=== PATIENT | female | born 1945 | race Caucasian/White ===

== ENCOUNTER → 2017-04-13 | Day surgery (SDC) | payer MEDICARE ==
[2017-04-10 12:56] VITALS: BMI 29.8
[~2017-04-13] MED LIST: FLU VACC TS2017-18 (>65YR) 0.5 ML SYRINGE IM ONE; Lidocaine 1% PF 5 ML VIAL ONE
[2017-04-13 13:31] VITALS: BP 124/79; TEMP 98.6
--- NOTE | 2017-04-13 16:18 | ULT ---
EXAM: THYROID ULTRASOUND FINE NEEDLE ASPIRATION: HISTORY: Right thyroid lobe nodule. COMPARISON: Outside thyroid ultrasound 03/25/17. FINDINGS: Technically successful fine needle aspiration of a solid nodule in the right thyroid lobe. A total o f four 25-gauge fine needle aspirations were obtained. There are no immediate post-procedure complic ations. TECHNIQUE: Consent was obtained to perform an ultrasound-guided fine needle aspiration of a solid mass in the ri ght thyroid lobe. The mass was redemonstrated and measures 0.9 x 0.6 x 0.9 cm. No significant river e when compared to the outside ultrasound. The right neck was prepped and draped in sterile fashion. 1% Lidocaine, buffered with sodium bicarbonate, was used for local anesthesia. Under ultrasound gu idance. A 25-gauge fine needle aspiration was performed. F our passes were performed. The patient to lerated the procedure well. No immediate or post-procedure complication. IMPRESSION: Technically successful fine needle aspiration of a solid nodule in the right thyroid lobe. Final pat hologic diagnosis is pending. POS: [facility]
== END ==
LOC: ULT 11:45
PROVIDERS: ATTEND Specialist
PROC: 0G9H3ZX Drainage of Right Thyroid Gland Lobe, Percutaneous Approach, Diagnostic (ICD-10-PCS; principal; 2017-04-13)
DX: E04.1 Nontoxic single thyroid nodule (principal); E78.00 Pure hypercholesterolemia, unspecified; M06.9 Rheumatoid arthritis, unspecified; Z79.899 Other long term (current) drug therapy
CPT/HCPCS: 10022; 76942; 88173; J2001

== ENCOUNTER 2018-05-27 07:42 | Outpatient (CLI) | payer MEDICARE ==
[2018-05-27 09:55] LABS: #Eosinphils 0.1 thou/uL (0.0-0.7); #Lymphocytes 1.9 thou/uL (1.20-3.40); #Monocytes 0.4 thou/uL (0.11-0.59); #Neutrophils 3.5 thou/uL (1.40-6.50); %Basophils 0.6 % (0.0-1.0); %Eosinophils 2.5 % (0.0-10.0); %Monocytes 6.6 % (0.0-10.0); %Neutrophils 58.2 % (42.0-75.0); Bilirubin Negative (Negative); Blood, Urine Negative (Negative); Clarity CLEAR (Clear); Glucose, Urine (Dipstick) Negative (Negative); Hemoglobin 14.1 g/dL (12.0-16.0); Leukocyte Negative (Negative); Mean Corpuscular HGB CONC 32.6 g/dL (32.0-36.0); Mean Corpuscular Hemoglobin 29.8 pg (27.0-31.0); Mean Corpuscular Volume 91.4 fL (78.0-98.0); Nitrite Negative (Negative); Platelet Count 192 thou/uL (130-400); Protein, Urine (Dipstick) Negative (Neg-Trace); RBC Distribution Width 11.9 % (11.5-14.5); Red Blood Cell (RBC) Count 4.75 mill/uL (4.20-5.40); Specific Gravity, Urine 1.018 (1.002-1.036); Urobilinogen 0.2 mg/dL (0.2-1.0); White Blood Cell (WBC) Count 5.9 thou/uL (4.8-10.8); pH, Urine 5.5 (5.0-9.0)
[2018-05-27 09:59] LABS: Bacteria/HPF None Seen HPF (None Seen); Hyaline Casts/LPF 0-3 HYALINE CAST LPF (0-3 Hyaline); PTT 26.1 SEC (22.9-36.1); Pathc Cast-AUWi Flag 0.43 (0-2.49); Prothrombin Time 12.9 SEC (12.0-14.7); RBC/HPF 0-3 HPF (0-3); Squamous Epithelial 0-3 HPF (0-3); WBC/HPF 0-3 HPF (0-3)
[2018-05-27 10:13] LABS: Anion Gap 17 mmol/L (10-20); BUN (Urea Nitrogen) 13 mg/dL (9.8-20.1); Calc. Creatinine Clearance 0 mL/min (70-130); Calcium 9.4 mg/dL (7.8-10.44); Carbon Dioxide 19 mmol/L (23-31); Chloride 109 mmol/L (98-107); Estimated GFR-MDRD 80; Glucose 109 mg/dL (83-110); Potassium 3.7 mmol/L (3.5-5.1); Sodium 141 mmol/L (136-145)
--- NOTE | 2018-05-27 13:19 | EKG ---
Test Reason : Blood Pressure : / mmHG Vent. Rate : 061 BPM Atrial Rate : 061 BPM P-R Int : 152 ms QRS Dur : 092 ms QT Int : 400 ms P-R-T Axes : 052 -11 026 degrees QTc Int : 402 ms Normal sinus rhythm Normal ECG When compared with ECG of 30-MAR-2014 09:35, Nonspecific T wave abnormality has replaced inverted T waves in Inferior leads Confirmed by KARIN FAGAN, SJoselito ([id number]) on 05/27/2018 1:18:39 PM Referred By: MIKE Confirmed By:DR. Micah FRAZIER MD
== END 2018-05-27 07:43 | disposition home or self-care (01) ==
LOC: LABBT 07:42
PROVIDERS: ATTEND Orthopaedic Surgery
DX: Z01.818 Encounter for other preprocedural examination (principal); M17.0 Bilateral primary osteoarthritis of knee
CPT/HCPCS: 80048; 81001; 85025; 85610; 85730; 87081; 87086; 93005; 93010

== ENCOUNTER 2018-05-27 08:30 | Inpatient (IN) | payer MEDICARE ==
--- NOTE | 2018-06-03 08:43 | HP ---
HISTORY OF PRESENT ILLNESS: The patient is a 73-year-old female with a long history of progressive problems with both knees, right greater than left, without injury. She has had progressive problems with pain despite rest, restriction of activities, cortisone injection, Synvisc injections, and anti-inflammatory medications. Her right knee pain has progressed to the point that now limits day-to-day activities including walking, getting dressed, and sleeping. PAST HISTORY: The patient has a history of possible rheumatoid arthritis, high blood pressure, high cholesterol, and nasal allergies. CURRENT MEDICATIONS: Include losartan, metoprolol, hydrochlorothiazide, glucosamine, vitamins, potassium, pravastatin, coenzyme Q. ALLERGIES: SHE IS ALLERGIC TO AMLODIPINE, ATORVASTATIN, AND BENAZEPRIL/HYDROCHLOROTHIAZIDE. FAMILY HISTORY: Otherwise, unremarkable. SOCIAL HISTORY: Otherwise, unremarkable. REVIEW OF SYSTEMS: Otherwise, unremarkable. PHYSICAL EXAMINATION: GENERAL: Healthy female. HEENT: Unremarkable. NECK: Supple. CHEST: Clear. HEART: Regular rate and rhythm. ABDOMEN: Soft, nontender. PELVIC: Deferred. RECTAL: Deferred. BREASTS: Deferred. EXTREMITIES: Pertinent findings of the right knee, there is no effusion, there is mild varus, there is tenderness over the medial joint line, range of motion is 0 to 120 degrees, there is mild crepitus, there is no instability. There is a right antalgic gait. Neurovascular exam is intact. Pulses are 1+. DIAGNOSTIC STUDIES: X-rays of the right knee reveal degenerative changes medially with minimal joint space remaining. There are mild changes in the left side. IMPRESSION: 1. Degenerative arthritis of right knee. 2. History of hypertension. PLAN: Right total knee replacement. The nature of the surgery, length of recovery, and potential complications such as infection, loss of motion, incomplete relief, delayed wound healing, neurovascular injury, thromboembolic phenomenon, possible transfusion, need for revision have been discussed in detail. Job ID: [id number]
[2018-06-07] MEDS ORDERED: CEFAZOLIN 2 GM/50 ML BAG ONE (06:20)
[2018-06-07] MEDS ORDERED: Tranexamic Acid 1,000 MG/10 ML VIAL ONE ×2 (06:20→08:46)
[2018-06-07] MEDS ORDERED: Sodium Chloride 0.9% 100 ML ONE (06:20)
[2018-06-07] MEDS ORDERED: Midazolam HCl 2 mg/2 ml Vial ONE (06:29)
[2018-06-07] MEDS ORDERED: Fentanyl 100 MCG/2 ML VIAL ONE ×4 (06:29→09:52)
[2018-06-07] MEDS ORDERED: Bupivacaine HCl 0.5%/Epinephrine 1:200,000/PF 30 ml Vial ONE (06:45)
[2018-06-07] MEDS ORDERED: Ondansetron PF 4 MG/2 ML Vial IVP PRN ×2 (07:28→10:22)
[2018-06-07] MEDS ORDERED: traMADol HCl 50 MG TAB PO PRN ×3 (07:28→10:22)
[2018-06-07] MEDS ORDERED: Zolpidem Tartrate 5 MG TAB PO PRN ×2 (07:28→10:22)
[2018-06-07] MEDS ORDERED: Promethazine HCl 25 MG/ML VIAL IM PRN ×2 (07:28→07:44)
[2018-06-07] MEDS ORDERED: Fentanyl 100 MCG/2 ML VIAL SLOW IVP PRN (07:28)
[2018-06-07] MEDS ORDERED: Promethazine HCl 25 MG/ML VIAL SLOW IVP PRN ×2 (07:44→10:22)
[2018-06-07] MEDS ORDERED: Ondansetron HCl/PF 4 MG/2 ML Vial IVP PRN (07:44)
[2018-06-07] MEDS ORDERED: Tranexamic Acid 1,000 MG in Sodium Chloride 0.9% 100 ML IVPB SCH ×2 (09:00→10:22)
--- NOTE | 2018-06-07 10:07 | OP ---
DATE OF PROCEDURE: 06/07/2018 BLOW PIT OPERATOR: Radha Bell PA-C ANESTHESIA: General plus adductor canal and sciatic nerve blocks. PREOPERATIVE DIAGNOSIS: Degenerative arthritis, right knee. POSTOPERATIVE DIAGNOSIS: Degenerative arthritis, right knee. PROCEDURES: Right total knee replacement with computer-assisted navigation with cemented [place] triathlon components (#4 femoral component, #3 primary tibial base plate with 9 mm CS plastic insert, and all plastic A29 patellar component). DESCRIPTION OF PROCEDURE: After report of satisfactory anesthesia was induced in supine position, sequential compression device was placed on the nonoperative leg throughout the procedure. The right leg was then prepped and draped in routine sterile fashion. The right leg was elevated and exsanguinated with an Esmarch bandage and the tourniquet inflated to 250 mmHg. A gently curved medial parapatellar incision was made, carried down through the subcutaneous tissues and bleeding points controlled with the Bovie cautery. The medial parapatellar arthrotomy was performed of the patella, this was carried laterally and portion of the fat pad were excised for exposure. There was marked degenerative arthritis of the knee especially medially and then patellofemoral bone with large areas of exposed bone. The changes were slightly more pronounced than present on the routine x-rays. Meniscal remnants and osteophytes were removed. Using the NeuralStem navigation system and the appropriate guides, the distal femoral and proximal tibial articular surfaces were excised with an oscillating saw to accept the trial components. It was felt that #4 femoral component and #3 tibial base plate with 9 mm CS plastic insert gave appropriate size fit and stability. The patellar articular surface was excised to accept an all plastic A29 patellar component. There was good range of motion and good patellar tracking. The trial components were removed. The knee was copiously irrigated with pulsatile lavage and bony surfaces thoroughly cleaned and dried. The permanent components were then cemented in a single stage using one pack of cement premixed with 1 g of tobramycin powder. Excess cement was removed. There was again good fit and stability of the components. The knee was then copiously irrigated. The skin was infiltrated with 30 mL of 0.25% Marcaine with epinephrine. The medial retinaculum and quadriceps mechanism were closed with interrupted #2 Vicryl and running #2 Quill. Subcutaneous tissues were closed with a running 0-Quill suture. The skin was closed with running subcuticular 3-0 Monoderm and SurgiSeal skin adhesive. A sterile bulky compressive dressing was applied and the tourniquet deflated at 69 minutes. The foot promptly pinked up. Sequential compression device was applied to the operated leg and she was awakened taken to recovery room in stable condition. There were no apparent intraoperative complications. ESTIMATED BLOOD LOSS: Less than 100 mL. Job ID: [id number]
--- NOTE | 2018-06-07 10:07 | RAD ---
RIGHT KNEE TWO VIEWS: Indication: Post-operative evaluation. FINDINGS: There is a right knee prosthesis without hardware complication. Expected post procedural soft tissue findings are seen. IMPRESSION: No acute post-operative complication is identified at the right knee. POS: [facility]
[2018-06-07] MEDS ORDERED: Acetaminophen 325 MG TAB PO PRN (10:22)
[2018-06-07] MEDS ORDERED: diphenhydrAMINE 25 MG CAP PO PRN (10:22)
[2018-06-07] MEDS ORDERED: POTASSIUM PO SCH (10:22)
[2018-06-07] MEDS ORDERED: CEFAZOLIN/Water 2 GM/20 ML SYRINGE SLOW IVP SCH (10:22)
[2018-06-07] MEDS ORDERED: HYDROcodone/Acetaminophen 10/325 mg Tablet PO PRN ×2 (10:22)
[2018-06-07] MEDS: HYDROcodone/Acetaminophen 10/325 mg Tablet PO PRN ×2 (11:03→20:47)
[2018-06-07] MEDS: Ketorolac Tromethamine 30 MG/ML VIAL IVP SCH ×2 (11:03→18:18)
[2018-06-07] MEDS: Sodium Chloride 0.9% 1,000 ML IV SCH ×2 (11:33→20:48)
[2018-06-07] MEDS ORDERED: Eucerin (Mineral Oil/Petrolatum,White) 30 gm Jar TOP PRN (12:13)
[2018-06-07] MEDS ORDERED: Artificial Tears 18 DROP/0.9 ML EA EYE PRN (12:13)
[2018-06-07] MEDS ORDERED: Loperamide HCl 2 MG CAP PO PRN (12:13)
[2018-06-07] MEDS ORDERED: Cepastat Lozenges 1 LOZ PO PRN (12:13)
[2018-06-07] MEDS ORDERED: Calcium Carbonate 500 MG ChewTAB PO PRN (12:13)
[2018-06-07] MEDS ORDERED: Diabetic Tussin 200 MG/10 ML UDCUP PO PRN (12:13)
[2018-06-07] MEDS ORDERED: hydrALAZINE 20 MG/ML VIAL SLOW IVP PRN (12:13)
[2018-06-07] MEDS ORDERED: Sodium Chloride 0.65% Nasal 44 ML BOT EA NARE PRN (12:13)
--- NOTE | 2018-06-07 13:38 | PDOC.PN ---
- Subjective Encounter Start Date: 06/07/18 Encounter Start Time: 13:15 -: old records requested/rev Patient seen and examined. No new complaints. she is admitted for right TKR she does not have any chest pain or dyspnea - Objective Resuscitation Status - Order Detail: 06/07/18 12:12 Resuscitation Status Routine Resuscitation Status: FULL: Full Resuscitation MAR Reviewed: Yes Vital Signs & Weight: Vital Signs (12 hours) Temp Pulse Resp BP Pulse Ox 06/07/18 11:14 85 140/85 06/07/18 10:30 100 06/07/18 10:00 98.1 F 82 18 181/97 H 100 Weight Weight 175 lb Additional Labs: old labs reviewed from [facility], and unremarkable including CBC and BMP Radiology Reviewed by me: Yes (knee xray reviewed) Phys Exam - Physical Examination Constitutional: NAD HEENT: PERRLA, moist MMs, sclera anicteric Neck: no JVD, supple Respiratory: no wheezing, no rales, no rhonchi Cardiovascular: RRR, no significant murmur, no rub Gastrointestinal: soft, non-tender, no distention, positive bowel sounds Musculoskeletal: no edema, pulses present right knee with dressing, nerve block+, hale+ Neurological: non-focal, normal sensation, moves all 4 limbs Lymphatic: no nodes Psychiatric: normal affect, A&O x 3 Skin: no rash, normal turgor Dx/Plan (1) Status post total right knee replacement Code(s): Z96.651 - PRESENCE OF RIGHT ARTIFICIAL KNEE JOINT Status: Acute (2) Dyslipidemia Code(s): E78.5 - HYPERLIPIDEMIA, UNSPECIFIED Status: Chronic (3) Hypertension Code(s): I10 - ESSENTIAL (PRIMARY) HYPERTENSION Status: Chronic (4) Obesity (BMI 30.0-34.9) Code(s): E66.9 - OBESITY, UNSPECIFIED Status: Chronic (5) Osteoarthritis Code(s): M19.90 - UNSPECIFIED OSTEOARTHRITIS, UNSPECIFIED SITE Status: Chronic - Plan cont current plan of care, plan discussed w/ family, PT/OT * medication reviewed as below * symptomatic treatment * home medication reconciled * code status full code addressed * pepcid for GI prophylaxis. * continue aspirin for DVT prophylaxis per protocol * nerve block as per anesthesia * pain controlled * medically stable for now * discussed with family * will follow. Review of Systems - Review of Systems ENT: negative: Ear Pain, Ear Discharge, Nose Pain, Nose Discharge, Nose Congestion, Mouth Pain, Mouth Swelling, Throat Pain, Throat Swelling, Other Respiratory: negative: Cough, Dry, Shortness of Breath, Hemoptysis, SOB with Excertion, Pleuritic Pain, Sputum, Wheezing Cardiovascular: negative: chest pain, palpitations, orthopnea, paroxysmal nocturnal dyspnea, edema, light headedness, other Gastrointestinal: negative: Nausea, Vomiting, Abdominal Pain, Diarrhea, Constipation, Melena, Hematochezia, Other Genitourinary: negative: Dysuria, Frequency, Incontinence, Hematuria, Retention , Other Musculoskeletal: negative: Neck Pain, Shoulder Pain, Arm Pain, Back Pain, Hand Pain, Leg Pain, Foot Pain, Other Skin: negative: Rash, Lesions, Mukund, Bruising, Other - Medications/Allergies Allergies/Adverse Reactions: Allergies Allergy/AdvReac Type Severity Reaction Status Date / Time amlodipine Allergy Verified 06/07/18 10:25 atorvastatin Allergy Verified 06/07/18 10:25 benazepril Allergy Verified 06/07/18 10:25 Medications: Current Medications Acetaminophen (Tylenol) 650 mg PO Q4H PRN PRN Reason: Headache/Fever Hydrocodone Bitart/Acetaminophen ([place] 10/325) 1 tab PO Q4H PRN PRN Reason: Pain (1-3) Hydrocodone Bitart/Acetaminophen ([place] 10/325) 2 tab PO Q4H PRN PRN Reason: PAIN (4-6) Last Admin: 06/07/18 11:03 Dose: 2 tab Artificial Tears (Tears Naturale) 2 drop EA EYE PRN PRN PRN Reason: Dry Eyes Aspirin (Ecotrin) 81 mg PO BID [facility] Calcium Carbonate (Tums) 1,000 mg PO Q4H PRN PRN Reason: Heartburn or Indigestion Calcium/Vitamin D (Caltrate 600 + Vit D) 1 tab PO QAM [facility] Coenzyme Q10 (Coenzyme Q10) 100 mg PO QAM [facility] Diphenhydramine HCl (Benadryl) 25 mg PO Q6H PRN PRN Reason: Itching Famotidine (Pepcid) 20 mg PO BID [facility] Fentanyl (Sublimaze) 50 mcg SLOW IVP Q1H PRN PRN Reason: breakthrough pain Ferrous Gluconate (Fergon) 324 mg PO BID [facility] Guaifenesin (Robitussin Sf) 200 mg PO Q4H PRN PRN Reason: Cough HCTZ/Losartan Potassium (Hyzaar 50/12.5) 1 tab PO QAM [facility] Hydralazine HCl (Apresoline) 10 mg SLOW IVP Q4H PRN PRN Reason: SBP > 180 and HR < 70 Ropivacaine 250 ml/ Device 250 mls @ 10 mls/hr NERVE BLCK INF [facility] Sodium Chloride (Normal Saline 0.9%) 1,000 mls @ 100 mls/hr IV .Q10H [facility] Last Admin: 06/07/18 11:33 Dose: 1,000 mls Vancomycin HCl 1 gm/ Device 200 mls @ 200 mls/hr IVPB 1900 [facility] Stop: 06/07/18 21:00 Cefazolin Sodium/Dextrose 2 gm (/ Device) 50 mls @ 100 mls/hr IVPB Q8HR [facility] Stop: 06/07/18 22:29 Iron/Minerals/Multivitamins (Theragran M) 1 tab PO DAILY [facility] Ketorolac Tromethamine (Toradol) 15 mg IVP Q6HR [facility] Stop: 06/09/18 06:01 Last Admin: 06/07/18 11:03 Dose: 15 mg Loperamide HCl (Imodium) 2 mg PO PRN PRN PRN Reason: Diarrhea/Loose Stools Metoprolol Succinate (Toprol Xl) 50 mg PO QAM [facility] Mineral Oil/White Petrolatum (Eucerin Cream) 0 gm TOP BIDPRN PRN PRN Reason: Dry Skin Non-Formulary Medication (Potassium [Potassium]) 1 tab PO QAM [facility] Ondansetron HCl (Zofran) 4 mg IVP Q6H PRN PRN Reason: Nausea/Vomiting Promethazine HCl (Phenergan) 12.5 mg IM Q4H PRN PRN Reason: Nausea Senna/Docusate Sodium (Senokot S) 2 tab PO BID [facility] Simvastatin (Zocor) 20 mg PO Q2DAYS [facility] Sodium Chloride (Flush - Normal Saline) 10 ml IVF PRN PRN PRN Reason: Saline Flush Sodium Chloride ([place] Nasal [place] 0.65%) 0 ml EA NARE QIDPRN PRN PRN Reason: Nasal Congestion Throat Lozenges (Cepastat Lozenges) 1 paul PO Q2H PRN PRN Reason: Sore Throat Tramadol HCl (Ultram) 50 mg PO Q6H PRN PRN Reason: Mild Pain (1-3) Tramadol HCl (Ultram) 100 mg PO Q6H PRN PRN Reason: Moderate Pain 4-6 Zolpidem Tartrate (Ambien) 5 mg PO HSPRN PRN PRN Reason: Insomnia
[2018-06-07] MEDS ORDERED: Ketorolac Tromethamine 30 MG/ML VIAL IVP SCH (14:00)
[2018-06-07] MEDS: CEFAZOLIN 2 GM/50 ML-DEXTROSE 2 GM in Premix Bag 1 BAG IVPB SCH ×2 (14:02→22:11)
[2018-06-07] MEDS ORDERED: Ropivacaine 0.5% HCl/PF (150 MG/30 ML VIAL) ONE (16:26)
[2018-06-07] MEDS ORDERED: Ropivacaine 0.2% HCl/PF (40 MG/20 ML VIAL) ONE (16:26)
[2018-06-07] MEDS ORDERED: Lidocaine 1% PF 5 ML VIAL ONE (17:04)
[2018-06-07] MEDS ORDERED: Ondansetron PF 4 MG/2 ML Vial ONE (17:04)
[2018-06-07] MEDS ORDERED: PROPOFOL 200 MG/20 ML VIAL ONE (17:04)
[2018-06-07] MEDS ORDERED: Vancomycin HCl 1 GM in Premix Bag 1 BAG IVPB SCH (19:00)
[2018-06-07] MEDS: Aspirin 81 mg Enteric Coated Tablet PO SCH (20:48)
[2018-06-07] MEDS: Simvastatin 5 MG TAB PO SCH (20:49)
[2018-06-07] MEDS: Famotidine 20 MG TAB PO SCH (20:49)
[2018-06-08] MEDS: Ketorolac Tromethamine 30 MG/ML VIAL IVP SCH ×4 (00:33→18:12)
[2018-06-08 05:31] LABS: Hemoglobin 11.8 g/dL (12.0-16.0); Mean Corpuscular HGB CONC 32.8 g/dL (32.0-36.0); Mean Corpuscular Hemoglobin 30.3 pg (27.0-31.0); Mean Corpuscular Volume 92.5 fL (78.0-98.0); Mean Platelet Volume 6.9 fL (7.4-10.4); Platelet Count 148 thou/uL (130-400); RBC Distribution Width 11.7 % (11.5-14.5); Red Blood Cell (RBC) Count 3.89 mill/uL (4.20-5.40); White Blood Cell (WBC) Count 8.9 thou/uL (4.8-10.8)
[2018-06-08] MEDS: HYDROcodone/Acetaminophen 10/325 mg Tablet PO PRN ×3 (05:52→18:12)
[2018-06-08] MEDS: Sodium Chloride 0.9% 1,000 ML IV SCH ×2 (06:59→10:29)
[2018-06-08] MEDS: Ferrous Gluconate 324 MG TAB PO SCH ×2 (08:37→20:16)
[2018-06-08] MEDS: Famotidine 20 MG TAB PO SCH ×2 (08:37→20:15)
[2018-06-08] MEDS: Multivitamin W/ Minerals 1 TAB PO SCH (08:37)
[2018-06-08] MEDS: Aspirin 81 mg Enteric Coated Tablet PO SCH ×2 (08:37→20:15)
[2018-06-08] MEDS: Senokot S 8.6-50 MG TAB PO SCH ×2 (08:37→20:15)
[2018-06-08] MEDS: Calcium Carbonate + Vit D 1 TAB PO SCH (08:38)
[2018-06-08] MEDS: Ubidecarenone 50 MG CAP PO SCH (08:39)
--- NOTE | 2018-06-08 09:51 | PDOC.PN ---
- Subjective Encounter Start Date: 06/08/18 Encounter Start Time: 08:10 Patient seen and examined. No new complaints. No overnight events had low grade fever, but pain controlled, - Objective Resuscitation Status - Order Detail: 06/07/18 12:12 Resuscitation Status Routine Resuscitation Status: FULL: Full Resuscitation MAR Reviewed: Yes Vital Signs & Weight: Vital Signs (12 hours) Temp Pulse Resp BP Pulse Ox 06/08/18 08:00 99.6 F 77 14 135/76 95 06/08/18 04:00 99.6 F 77 18 101/66 96 06/08/18 00:00 99.7 F H 83 18 143/80 H 95 Weight Weight 175 lb I&O: 06/07/18 06/08/18 06/09/18 06:59 06:59 06:59 Intake Total 2620 900 Output Total 400 2200 Balance 2220 -1300 Result Diagrams: 06/08/18 05:11 Phys Exam - Physical Examination Constitutional: NAD HEENT: PERRLA, moist MMs, sclera anicteric Neck: no JVD, supple Respiratory: no wheezing, no rales, no rhonchi Cardiovascular: RRR, no significant murmur, no rub Gastrointestinal: soft, non-tender, no distention, positive bowel sounds Musculoskeletal: no edema, pulses present right knee with dressing, nerve block+ Neurological: non-focal, normal sensation, moves all 4 limbs Psychiatric: normal affect, A&O x 3 Skin: no rash, normal turgor Dx/Plan (1) Status post total right knee replacement Code(s): Z96.651 - PRESENCE OF RIGHT ARTIFICIAL KNEE JOINT Status: Acute (2) Dyslipidemia Code(s): E78.5 - HYPERLIPIDEMIA, UNSPECIFIED Status: Chronic (3) Hypertension Code(s): I10 - ESSENTIAL (PRIMARY) HYPERTENSION Status: Chronic (4) Obesity (BMI 30.0-34.9) Code(s): E66.9 - OBESITY, UNSPECIFIED Status: Chronic (5) Osteoarthritis Code(s): M19.90 - UNSPECIFIED OSTEOARTHRITIS, UNSPECIFIED SITE Status: Chronic (6) Anemia, normocytic normochromic Code(s): D64.9 - ANEMIA, UNSPECIFIED Status: Acute - Plan cont current plan of care, plan discussed w/ family, PT/OT * medication reviewed as below * symptomatic treatment * pepcid for GI prophylaxis. * continue aspirin for DVT prophylaxis per protocol * nerve block as per anesthesia * pain controlled * medically stable for now * will follow. * discharge per primary team. * consider hale removal Review of Systems - Review of Systems ENT: negative: Ear Pain, Ear Discharge, Nose Pain, Nose Discharge, Nose Congestion, Mouth Pain, Mouth Swelling, Throat Pain, Throat Swelling, Other Respiratory: negative: Cough, Dry, Shortness of Breath, Hemoptysis, SOB with Excertion, Pleuritic Pain, Sputum, Wheezing Cardiovascular: negative: chest pain, palpitations, orthopnea, paroxysmal nocturnal dyspnea, edema, light headedness, other Gastrointestinal: negative: Nausea, Vomiting, Abdominal Pain, Diarrhea, Constipation, Melena, Hematochezia, Other Genitourinary: negative: Dysuria, Frequency, Incontinence, Hematuria, Retention , Other Musculoskeletal: negative: Neck Pain, Shoulder Pain, Arm Pain, Back Pain, Hand Pain, Leg Pain, Foot Pain, Other Skin: negative: Rash, Lesions, Mukund, Bruising, Other - Medications/Allergies Allergies/Adverse Reactions: Allergies Allergy/AdvReac Type Severity Reaction Status Date / Time amlodipine Allergy Verified 06/07/18 10:25 atorvastatin Allergy Verified 06/07/18 10:25 benazepril Allergy Verified 06/07/18 10:25 Medications: Current Medications Acetaminophen (Tylenol) 650 mg PO Q4H PRN PRN Reason: Headache/Fever Last Admin: 06/07/18 22:19 Dose: 650 mg Hydrocodone Bitart/Acetaminophen ([place] 10/325) 1 tab PO Q4H PRN PRN Reason: Pain (1-3) Last Admin: 06/07/18 20:47 Dose: 1 tab Hydrocodone Bitart/Acetaminophen ([place] 10/325) 2 tab PO Q4H PRN PRN Reason: PAIN (4-6) Last Admin: 06/08/18 05:52 Dose: 2 tab Artificial Tears (Tears Naturale) 2 drop EA EYE PRN PRN PRN Reason: Dry Eyes Aspirin (Ecotrin) 81 mg PO BID [facility] Last Admin: 06/08/18 08:37 Dose: 81 mg Calcium Carbonate (Tums) 1,000 mg PO Q4H PRN PRN Reason: Heartburn or Indigestion Last Admin: 06/07/18 22:12 Dose: 1,000 mg Calcium/Vitamin D (Caltrate 600 + Vit D) [facility] Last Admin: 06/08/18 08:38 Dose: 1 tab Coenzyme Q10 (Coenzyme Q10) [facility] Last Admin: 06/08/18 08:39 Dose: 100 mg Diphenhydramine HCl (Benadryl) 25 mg PO Q6H PRN PRN Reason: Itching Famotidine (Pepcid) 20 mg PO BID [facility] Last Admin: 06/08/18 08:37 Dose: 20 mg Fentanyl (Sublimaze) 50 mcg SLOW IVP Q1H PRN PRN Reason: breakthrough pain Ferrous Gluconate (Fergon) 324 mg PO BID [facility] Last Admin: 06/08/18 08:37 Dose: 324 mg Guaifenesin (Robitussin Sf) 200 mg PO Q4H PRN PRN Reason: Cough HCTZ/Losartan Potassium (Hyzaar 50/12.5) [address] [facility] Last Admin: 06/08/18 08:38 Dose: 1 tab Hydralazine HCl (Apresoline) 10 mg SLOW IVP Q4H PRN PRN Reason: SBP > 180 and HR < 70 Ropivacaine 250 ml/ Device 250 mls @ 10 mls/hr NERVE BLCK INF [facility] Sodium Chloride (Normal Saline 0.9%) 1,000 mls @ 100 mls/hr IV .Q10H [facility] Last Admin: 06/08/18 06:59 Dose: Not Given Iron/Minerals/Multivitamins (Theragran M) 1 tab PO DAILY [facility] Last Admin: 06/08/18 08:37 Dose: 1 tab Ketorolac Tromethamine (Toradol) 15 mg IVP Q6HR [facility] Stop: 06/09/18 06:01 Last Admin: 06/08/18 05:47 Dose: 15 mg Loperamide HCl (Imodium) 2 mg PO PRN PRN PRN Reason: Diarrhea/Loose Stools Metoprolol Succinate (Toprol Xl) [address] [facility] Last Admin: 06/08/18 08:38 Dose: 50 mg Mineral Oil/White Petrolatum (Eucerin Cream) 0 gm TOP BIDPRN PRN PRN Reason: Dry Skin Non-Formulary Medication (Potassium [Potassium]) [address] [facility] Ondansetron HCl (Zofran) 4 mg IVP Q6H PRN PRN Reason: Nausea/Vomiting Promethazine HCl (Phenergan) 12.5 mg IM Q4H PRN PRN Reason: Nausea Senna/Docusate Sodium (Senokot S) 2 tab PO BID [facility] Last Admin: 06/08/18 08:37 Dose: 2 tab Simvastatin (Zocor) 10 mg PO Q2DAYS [facility] Last Admin: 06/07/18 20:49 Dose: 10 mg Sodium Chloride (Flush - Normal Saline) 10 ml IVF PRN PRN PRN Reason: Saline Flush Last Admin: 06/08/18 08:36 Dose: 10 ml Sodium Chloride ([place] Nasal [place] 0.65%) 0 ml EA NARE QIDPRN PRN PRN Reason: Nasal Congestion Throat Lozenges (Cepastat Lozenges) 1 paul PO Q2H PRN PRN Reason: Sore Throat Tramadol HCl (Ultram) 50 mg PO Q6H PRN PRN Reason: Mild Pain (1-3) Tramadol HCl (Ultram) 100 mg PO Q6H PRN PRN Reason: Moderate Pain 4-6 Zolpidem Tartrate (Ambien) 5 mg PO HSPRN PRN PRN Reason: Insomnia
[2018-06-08] MEDS: Ropivacaine HCl/PF 250 ML in Premix Bag 1 BAG NERVE BLCK SCH (10:38)
[2018-06-08] MEDS ORDERED: HYDROcodone/Acetaminophen 10/325 mg Tablet ONE (18:11)
[2018-06-09] MEDS: Ketorolac Tromethamine 30 MG/ML VIAL IVP SCH ×2 (00:45→06:12)
[2018-06-09] MEDS: Sodium Chloride 0.9% 1,000 ML IV SCH ×3 (02:28→20:00)
[2018-06-09] MEDS: HYDROcodone/Acetaminophen 10/325 mg Tablet PO PRN ×3 (07:29→19:57)
[2018-06-09] MEDS: Ubidecarenone 50 MG CAP PO SCH (08:29)
[2018-06-09] MEDS: Aspirin 81 mg Enteric Coated Tablet PO SCH ×2 (08:29→19:56)
[2018-06-09] MEDS: Calcium Carbonate + Vit D 1 TAB PO SCH (08:29)
[2018-06-09] MEDS: Senokot S 8.6-50 MG TAB PO SCH ×2 (08:29→19:59)
[2018-06-09] MEDS: Multivitamin W/ Minerals 1 TAB PO SCH (08:29)
[2018-06-09] MEDS: Ferrous Gluconate 324 MG TAB PO SCH ×2 (08:30→19:57)
[2018-06-09] MEDS: Famotidine 20 MG TAB PO SCH ×2 (08:30→19:57)
--- NOTE | 2018-06-09 11:35 | PDOC.PN ---
- Subjective Encounter Start Date: 06/09/18 Encounter Start Time: 08:00 Patient seen and examined. No new complaints. No overnight events - Objective Resuscitation Status - Order Detail: 06/07/18 12:12 Resuscitation Status Routine Resuscitation Status: FULL: Full Resuscitation MAR Reviewed: Yes Vital Signs & Weight: Vital Signs (12 hours) Temp Pulse Resp BP Pulse Ox 06/09/18 11:13 98.0 F 68 15 137/75 97 06/09/18 07:37 98.3 F 74 14 154/77 H 98 06/09/18 07:35 98.3 F 74 14 154/77 H 98 06/09/18 04:42 99.3 F 80 16 138/81 97 06/09/18 00:45 98.9 F 86 16 151/78 H 99 Weight Admit Weight 175 lb Weight 175 lb I&O: 06/08/18 06/09/18 06/10/18 06:59 06:59 06:59 Intake Total 2620 3550 Output Total 400 2800 Balance 2220 750 Result Diagrams: 06/08/18 05:11 Phys Exam - Physical Examination Constitutional: NAD HEENT: PERRLA, moist MMs, sclera anicteric Neck: no JVD, supple Respiratory: no wheezing, no rales, no rhonchi Cardiovascular: RRR, no significant murmur, no rub Gastrointestinal: soft, non-tender, no distention, positive bowel sounds Musculoskeletal: no edema, pulses present Neurological: non-focal, normal sensation, moves all 4 limbs Lymphatic: no nodes Psychiatric: normal affect, A&O x 3 Skin: no rash, normal turgor Dx/Plan (1) Status post total right knee replacement Code(s): Z96.651 - PRESENCE OF RIGHT ARTIFICIAL KNEE JOINT Status: Acute (2) Dyslipidemia Code(s): E78.5 - HYPERLIPIDEMIA, UNSPECIFIED Status: Chronic (3) Hypertension Code(s): I10 - ESSENTIAL (PRIMARY) HYPERTENSION Status: Chronic (4) Obesity (BMI 30.0-34.9) Code(s): E66.9 - OBESITY, UNSPECIFIED Status: Chronic (5) Osteoarthritis Code(s): M19.90 - UNSPECIFIED OSTEOARTHRITIS, UNSPECIFIED SITE Status: Chronic (6) Anemia, normocytic normochromic Code(s): D64.9 - ANEMIA, UNSPECIFIED Status: Acute - Plan cont current plan of care, PT/OT, social worker assistant * medication reviewed as below * symptomatic treatment * continue PT * medically stable * pt will be discharged tomorrow to [facility]. Review of Systems - Review of Systems ENT: negative: Ear Pain, Ear Discharge, Nose Pain, Nose Discharge, Nose Congestion, Mouth Pain, Mouth Swelling, Throat Pain, Throat Swelling, Other Respiratory: negative: Cough, Dry, Shortness of Breath, Hemoptysis, SOB with Excertion, Pleuritic Pain, Sputum, Wheezing Cardiovascular: negative: chest pain, palpitations, orthopnea, paroxysmal nocturnal dyspnea, edema, light headedness, other Gastrointestinal: negative: Nausea, Vomiting, Abdominal Pain, Diarrhea, Constipation, Melena, Hematochezia, Other Genitourinary: negative: Dysuria, Frequency, Incontinence, Hematuria, Retention , Other Musculoskeletal: negative: Neck Pain, Shoulder Pain, Arm Pain, Back Pain, Hand Pain, Leg Pain, Foot Pain, Other - Medications/Allergies Allergies/Adverse Reactions: Allergies Allergy/AdvReac Type Severity Reaction Status Date / Time amlodipine Allergy Verified 06/07/18 10:25 atorvastatin Allergy Verified 06/07/18 10:25 benazepril Allergy Verified 06/07/18 10:25 Medications: Current Medications Acetaminophen (Tylenol) 650 mg PO Q4H PRN PRN Reason: Headache/Fever Last Admin: 06/07/18 22:19 Dose: 650 mg Hydrocodone Bitart/Acetaminophen ([place] 10/325) 1 tab PO Q4H PRN PRN Reason: Pain (1-3) Last Admin: 06/07/18 20:47 Dose: 1 tab Hydrocodone Bitart/Acetaminophen ([place] 10/325) 2 tab PO Q4H PRN PRN Reason: PAIN (4-6) Last Admin: 06/09/18 07:29 Dose: 2 tab Artificial Tears (Tears Naturale) 2 drop EA EYE PRN PRN PRN Reason: Dry Eyes Aspirin (Ecotrin) 81 mg PO BID [facility] Last Admin: 06/09/18 08:29 Dose: 81 mg Calcium Carbonate (Tums) 1,000 mg PO Q4H PRN PRN Reason: Heartburn or Indigestion Last Admin: 06/07/18 22:12 Dose: 1,000 mg Calcium/Vitamin D (Caltrate 600 + Vit D) 1 tab PO QAM [facility] Last Admin: 06/09/18 08:29 Dose: 1 tab Coenzyme Q10 (Coenzyme Q10) [facility] Last Admin: 06/09/18 08:29 Dose: 100 mg Diphenhydramine HCl (Benadryl) 25 mg PO Q6H PRN PRN Reason: Itching Famotidine (Pepcid) 20 mg PO BID [facility] Last Admin: 06/09/18 08:30 Dose: 20 mg Fentanyl (Sublimaze) 50 mcg SLOW IVP Q1H PRN PRN Reason: breakthrough pain Ferrous Gluconate (Fergon) 324 mg PO BID [facility] Last Admin: 06/09/18 08:30 Dose: 324 mg Guaifenesin (Robitussin Sf) 200 mg PO Q4H PRN PRN Reason: Cough HCTZ/Losartan Potassium (Hyzaar 50/12.5) 1 tab PO [facility] Last Admin: 06/09/18 08:29 Dose: 1 tab Hydralazine HCl (Apresoline) 10 mg SLOW IVP Q4H PRN PRN Reason: SBP > 180 and HR < 70 Ropivacaine 250 ml/ Device 250 mls @ 10 mls/hr NERVE BLCK INF [facility] Last Admin: 06/08/18 10:38 Dose: 250 mls Sodium Chloride (Normal Saline 0.9%) 1,000 mls @ 100 mls/hr IV .Q10H [facility] Last Admin: 06/09/18 09:38 Dose: Not Given Iron/Minerals/Multivitamins (Theragran M) 1 tab PO DAILY [facility] Last Admin: 06/09/18 08:29 Dose: 1 tab Loperamide HCl (Imodium) 2 mg PO PRN PRN PRN Reason: Diarrhea/Loose Stools Metoprolol Succinate (Toprol Xl) 50 mg PO [facility] Last Admin: 06/09/18 08:30 Dose: 50 mg Mineral Oil/White Petrolatum (Eucerin Cream) 0 gm TOP BIDPRN PRN PRN Reason: Dry Skin Non-Formulary Medication (Potassium [Potassium]) 1 tab PO [facility] Ondansetron HCl (Zofran) 4 mg IVP Q6H PRN PRN Reason: Nausea/Vomiting Promethazine HCl (Phenergan) 12.5 mg IM Q4H PRN PRN Reason: Nausea Senna/Docusate Sodium (Senokot S) 2 tab PO BID [facility] Last Admin: 06/09/18 08:29 Dose: 2 tab Simvastatin (Zocor) 10 mg PO Q2DAYS [facility] Last Admin: 06/07/18 20:49 Dose: 10 mg Sodium Chloride (Flush - Normal Saline) 10 ml IVF PRN PRN PRN Reason: Saline Flush Last Admin: 06/09/18 08:30 Dose: 10 ml Sodium Chloride ([place] 0.65%) 0 ml EA NARE QIDPRN PRN PRN Reason: Nasal Congestion Throat Lozenges (Cepastat Lozenges) 1 paul PO Q2H PRN PRN Reason: Sore Throat Tramadol HCl (Ultram) 50 mg PO Q6H PRN PRN Reason: Mild Pain (1-3) Tramadol HCl (Ultram) 100 mg PO Q6H PRN PRN Reason: Moderate Pain 4-6 Last Admin: 06/08/18 13:14 Dose: 100 mg Zolpidem Tartrate (Ambien) 5 mg PO HSPRN PRN PRN Reason: Insomnia
[2018-06-09] MEDS: Ropivacaine HCl/PF 250 ML in Premix Bag 1 BAG NERVE BLCK SCH (11:58)
[2018-06-09] MEDS: Simvastatin 5 MG TAB PO SCH ×2 (19:59→20:20)
[2018-06-10] MEDS: HYDROcodone/Acetaminophen 10/325 mg Tablet PO PRN ×2 (05:55→11:15)
[2018-06-10] MEDS: Ubidecarenone 50 MG CAP PO SCH (08:35)
[2018-06-10] MEDS: Ferrous Gluconate 324 MG TAB PO SCH (08:35)
[2018-06-10] MEDS: Calcium Carbonate + Vit D 1 TAB PO SCH (08:35)
[2018-06-10] MEDS: Aspirin 81 mg Enteric Coated Tablet PO SCH (08:35)
[2018-06-10] MEDS: Multivitamin W/ Minerals 1 TAB PO SCH (08:35)
[2018-06-10] MEDS: Senokot S 8.6-50 MG TAB PO SCH (08:36)
[2018-06-10] MEDS: Famotidine 20 MG TAB PO SCH (08:36)
--- NOTE | 2018-06-10 09:31 | PDOC.PN ---
- Subjective Encounter Start Date: 06/10/18 Encounter Start Time: 07:40 Patient seen and examined. No new complaints. No overnight events - Objective Resuscitation Status - Order Detail: 06/07/18 12:12 Resuscitation Status Routine Resuscitation Status: FULL: Full Resuscitation MAR Reviewed: Yes Vital Signs & Weight: Vital Signs (12 hours) Temp Pulse Resp BP Pulse Ox 06/10/18 07:27 99.8 F H 74 20 154/79 H 97 06/10/18 04:33 99.4 F 81 16 144/78 H 95 06/10/18 00:17 99.3 F 96 16 146/78 H 92 L Weight Admit Weight 175 lb Weight 175 lb I&O: 06/09/18 06/10/18 06/11/18 06:59 06:59 06:59 Intake Total 3550 2950 Output Total 2800 Balance 750 2950 Result Diagrams: 06/08/18 05:11 Phys Exam - Physical Examination Constitutional: NAD HEENT: PERRLA, moist MMs, sclera anicteric Neck: no JVD, supple Respiratory: no wheezing, no rales, no rhonchi Cardiovascular: RRR, no significant murmur, no rub Gastrointestinal: soft, non-tender, no distention, positive bowel sounds Musculoskeletal: no edema, pulses present Neurological: non-focal, normal sensation, moves all 4 limbs Lymphatic: no nodes Psychiatric: normal affect, A&O x 3 Skin: no rash, normal turgor Dx/Plan (1) Status post total right knee replacement Code(s): Z96.651 - PRESENCE OF RIGHT ARTIFICIAL KNEE JOINT Status: Acute (2) Dyslipidemia Code(s): E78.5 - HYPERLIPIDEMIA, UNSPECIFIED Status: Chronic (3) Hypertension Code(s): I10 - ESSENTIAL (PRIMARY) HYPERTENSION Status: Chronic (4) Obesity (BMI 30.0-34.9) Code(s): E66.9 - OBESITY, UNSPECIFIED Status: Chronic (5) Osteoarthritis Code(s): M19.90 - UNSPECIFIED OSTEOARTHRITIS, UNSPECIFIED SITE Status: Chronic (6) Anemia, normocytic normochromic Code(s): D64.9 - ANEMIA, UNSPECIFIED Status: Acute - Plan cont current plan of care, social work job titles * medication reviewed as below * symptomatic treatment * see discharge summerstephanie. Review of Systems - Review of Systems ENT: negative: Ear Pain, Ear Discharge, Nose Pain, Nose Discharge, Nose Congestion, Mouth Pain, Mouth Swelling, Throat Pain, Throat Swelling, Other Respiratory: negative: Cough, Dry, Shortness of Breath, Hemoptysis, SOB with Excertion, Pleuritic Pain, Sputum, Wheezing Cardiovascular: negative: chest pain, palpitations, orthopnea, paroxysmal nocturnal dyspnea, edema, light headedness, other Gastrointestinal: negative: Nausea, Vomiting, Abdominal Pain, Diarrhea, Constipation, Melena, Hematochezia, Other Genitourinary: negative: Dysuria, Frequency, Incontinence, Hematuria, Retention , Other Musculoskeletal: negative: Neck Pain, Shoulder Pain, Arm Pain, Back Pain, Hand Pain, Leg Pain, Foot Pain, Other - Medications/Allergies Allergies/Adverse Reactions: Allergies Allergy/AdvReac Type Severity Reaction Status Date / Time amlodipine Allergy Verified 06/07/18 10:25 atorvastatin Allergy Verified 06/07/18 10:25 benazepril Allergy Verified 06/07/18 10:25 Medications: Current Medications Acetaminophen (Tylenol) 650 mg PO Q4H PRN PRN Reason: Headache/Fever Last Admin: 06/07/18 22:19 Dose: 650 mg Hydrocodone Bitart/Acetaminophen ([place] 10/325) 1 tab PO Q4H PRN PRN Reason: Pain (1-3) Last Admin: 06/10/18 05:55 Dose: 1 tab Hydrocodone Bitart/Acetaminophen ([place] 10/325) 2 tab PO Q4H PRN PRN Reason: PAIN (4-6) Last Admin: 06/09/18 16:04 Dose: 2 tab Artificial Tears (Tears Naturale) 2 drop EA EYE PRN PRN PRN Reason: Dry Eyes Aspirin (Ecotrin) 81 mg PO BID [facility] Last Admin: 06/10/18 08:35 Dose: 81 mg Calcium Carbonate (Tums) 1,000 mg PO Q4H PRN PRN Reason: Heartburn or Indigestion Last Admin: 06/07/18 22:12 Dose: 1,000 mg Calcium/Vitamin D (Caltrate 600 + Vit D) [facility] Last Admin: 06/10/18 08:35 Dose: 1 tab Coenzyme Q10 (Coenzyme Q10) 100 mg PO [facility] Last Admin: 06/10/18 08:35 Dose: 100 mg Diphenhydramine HCl (Benadryl) 25 mg PO Q6H PRN PRN Reason: Itching Famotidine (Pepcid) 20 mg PO BID [facility] Last Admin: 06/10/18 08:36 Dose: 20 mg Fentanyl (Sublimaze) 50 mcg SLOW IVP Q1H PRN PRN Reason: breakthrough pain Ferrous Gluconate (Fergon) 324 mg PO BID [facility] Last Admin: 06/10/18 08:35 Dose: 324 mg Guaifenesin (Robitussin Sf) 200 mg PO Q4H PRN PRN Reason: Cough HCTZ/Losartan Potassium (Hyzaar 50/12.5) 1 [facility] Last Admin: 06/10/18 08:35 Dose: 1 tab Hydralazine HCl (Apresoline) 10 mg SLOW IVP Q4H PRN PRN Reason: SBP > 180 and HR < 70 Last Admin: 06/09/18 16:10 Dose: 10 mg Ropivacaine 250 ml/ Device 250 mls @ 10 mls/hr NERVE BLCK INF [facility] Last Admin: 06/09/18 11:58 Dose: 250 mls Sodium Chloride (Normal Saline 0.9%) 1,000 mls @ 100 mls/hr IV .Q10H [facility] Last Admin: 06/09/18 20:00 Dose: Not Given Iron/Minerals/Multivitamins (Theragran M) 1 tab PO DAILY [facility] Last Admin: 06/10/18 08:35 Dose: 1 tab Loperamide HCl (Imodium) 2 mg PO PRN PRN PRN Reason: Diarrhea/Loose Stools Metoprolol Succinate (Toprol Xl) 50 mg PO [facility] Last Admin: 06/10/18 08:35 Dose: 50 mg Mineral Oil/White Petrolatum (Eucerin Cream) 0 gm TOP BIDPRN PRN PRN Reason: Dry Skin Non-Formulary Medication (Potassium [Potassium]) 1 tab PO [facility] Ondansetron HCl (Zofran) 4 mg IVP Q6H PRN PRN Reason: Nausea/Vomiting Promethazine HCl (Phenergan) 12.5 mg IM Q4H PRN PRN Reason: Nausea Senna/Docusate Sodium (Senokot S) 2 tab PO BID [facility] Last Admin: 06/10/18 08:36 Dose: 2 tab Simvastatin (Zocor) 10 mg PO Q2DAYS [facility] Last Admin: 06/09/18 20:20 Dose: 10 mg Sodium Chloride (Flush - Normal Saline) 10 ml IVF PRN PRN PRN Reason: Saline Flush Last Admin: 06/09/18 08:30 Dose: 10 ml Sodium Chloride ([place] Nasal [place] 0.65%) 0 ml EA NARE QIDPRN PRN PRN Reason: Nasal Congestion Throat Lozenges (Cepastat Lozenges) 1 paul PO Q2H PRN PRN Reason: Sore Throat Tramadol HCl (Ultram) 50 mg PO Q6H PRN PRN Reason: Mild Pain (1-3) Tramadol HCl (Ultram) 100 mg PO Q6H PRN PRN Reason: Moderate Pain 4-6 Last Admin: 06/08/18 13:14 Dose: 100 mg Zolpidem Tartrate (Ambien) 5 mg PO HSPRN PRN PRN Reason: Insomnia
--- NOTE | 2018-06-10 09:33 | PRG ---
DATE OF SERVICE: 06/10/2018 PROGRESS NOTE/SIGN-OUT NOTE/TRANSFER OF CARE NOTE/DISCHARGE SUMMARY PRIMARY CARE PHYSICIAN: Dr. Anant Christian. DISCHARGE DISPOSITION: [facility]. PRIMARY DISCHARGE DIAGNOSIS: Status post right total knee replacement. SECONDARY DISCHARGE DIAGNOSES: 1. Normocytic normochromic anemia. 2. Obesity with BMI 30. 3. Hypertension. 4. Dyslipidemia. 5. Osteoarthritis. PRIMARY PROCEDURE/OPERATION: Right total knee replacement by Dr. Anant Islas. RADIOLOGICAL INVESTIGATION: Knee x-ray. SIGNIFICANT LABORATORY DATA: WBC 8.9, hemoglobin 11.8, and platelet 148. DISCHARGE MEDICATIONS: 1. Pravastatin 20 mg every other day. 2. Calcium with vitamin D 1 tablet daily. 3. Glucosamine chondroitin sulfate one tablet daily. 4. Losartan with hydrochlorothiazide 1 tablet daily. 5. Metoprolol-XL 50 mg daily. 6. Potassium gluconate one tablet daily. 7. Multivitamin one tablet daily. 8. Coenzyme Q10 100 mg daily. 9. Vitamin E 400 units p.o. daily. 10. Aspirin 81 mg p.o. b.i.d. for DVT prophylaxis. 11. [place] 10 one or two tablets q.4 hourly p.r.n. for pain. CONTRAINDICATION: None. CODE STATUS: Full code. INPATIENT [place]SA[place] TENDER: Dr. Islas was primary while in hospital. [facility] [place] Team was consulted for medical comanagement. TEST RESULTS PENDING ON DISCHARGE: None. ALLERGIES: AMLODIPINE, LIPITOR, AND BENAZEPRIL. DISCHARGE PLAN: Posthospital, the patient will follow up with Dr. Islas on June 22, 2018 at 10:15 a.m. The patient will follow up with primary care physician after discharge. HOSPITAL COURSE: A 73-year-old female, who has underlying osteoarthritis. The patient failed outpatient conservative treatment that is why the patient was admitted by Dr. Islas for right total knee replacement, which was done on June 07, 2018 without any complications. Postoperatively, a [facility] Team was consulted for medical comanagement. The patient's all medical problems remained stable while in hospital. The patient was given no block. The patient had aspirin for DVT prophylaxis. Her pain was controlled with pain medication. The patient did relatively well with [facility] protocol treatment, but the patient was needing more PT and OT and that is why with help of manager of case management, we arranged correction home for her. The patient is seen and examined at bedside today. PHYSICAL EXAMINATION: VITAL SIGNS: Currently temperature 99.4, pulse 81, respiratory rate 16, saturation 95% on room air, blood pressure 144/78. Weight 175 pounds. GENERAL: The patient is currently alert, awake. No obvious acute distress. HEENT: Head; normocephalic and atraumatic. Eyes; pupils round, reactive to light. Extraocular muscle intact. ENT, oropharynx within normal limits. Moist mucous membranes. No oral lesion. No pharyngeal erythema. No exudate. NECK: Supple. No JVD. No thyromegaly. No carotid bruit. No jugular venous distention. LUNGS: Clear to auscultation without any rhonchi or rales. CARDIAC: S1 and S2 regular without any murmur. ABDOMEN: Soft and benign without any tenderness. EXTREMITIES: No edema. NEUROLOGIC: Nonfocal examination. Surgical site is clean and healthy. The patient is planned for discharge by Primary Team today and we will sign off. Job ID: [id number]
[2018-06-10 11:57] VITALS: BP 171/84; TEMP 97.9
== END 2018-06-10 14:29 | DRG 470 ==
LOC: SJJU 06-07 05:35
PROVIDERS: ADMIT Orthopaedic Surgery; ATTEND Orthopaedic Surgery
PROC: 0SRC0J9 Replacement of Right Knee Joint with Synthetic Substitute, Cemented, Open Approach (ICD-10-PCS; principal; 2018-06-07)
DX: M17.11 Unilateral primary osteoarthritis, right knee (principal); M06.9 Rheumatoid arthritis, unspecified; I10 Essential (primary) hypertension; E78.5 Hyperlipidemia, unspecified; E66.9 Obesity, unspecified; Z68.30 Body mass index [BMI] 30.0-30.9, adult; D64.9 Anemia, unspecified
CPT/HCPCS: 36415; 85027; C1713; C1776; J0360; J0670; J1885; J2001; J2250; J2405; J2704; J2795; J3010; J3370; J7050

== ENCOUNTER 2018-06-03 13:00 | Outpatient (CLI) | payer MEDICARE | END 2018-06-03 13:01 | disposition home or self-care (01) | LOC: LABBT 13:00 | PROVIDERS: ATTEND Orthopaedic Surgery | DX: Z01.812 Encounter for preprocedural laboratory examination (principal); M17.0 Bilateral primary osteoarthritis of knee | CPT/HCPCS: 86850; 86900; 86901 ==